=== PATIENT | male | born 1940 | race Hispanic/Latino ===

== ENCOUNTER 2025-04-11 22:14 | Emergency (ER) | payer MEDICARE, MEDICAID ==
[~2025-04-11] VITALS: Ht 160 cm; Wt 79.4 kg
[2025-04-11 22:51] LABS: IMMATURE GRANULOCYTE ABSOLUTE 0.06 K/uL (0-1); NUCLEATED RED BLOOD CELLS 0.0 % (0.0-0.19); PLATELET COUNT (AUTO) 144 K/uL (130-400); RED BLOOD CELL COUNT(AUTO) 4.35 MIL/uL (4.50-6.20); RED CELL DISTRIBUTION WIDTH 13.4 % (11.0-15.5); WHITE BLOOD COUNT (AUTO) 6.4 K/uL (4.8-10.8)
--- NOTE | 2025-04-11 22:54 | HMCIMG ---
EXAM: CR Chest, 1 view CLINICAL HISTORY: Chest pain. COMPARISON: None provided. FINDINGS: The lungs show no infiltrates or other acute findings. No pleural effusion or pneumothorax. The cardiomediastinal silhouette is within normal limits. Mildly tortuous descending thoracic aorta. No acute osseous abnormality. IMPRESSION: No acute cardiopulmonary process is evident. /[place]
[2025-04-11 22:58] LABS: CREATININE 0.9 mg/dL (0.5-1.3); GLOMERULAR FILTR. RATE CALC 85.0 mL/min (>90); GLUCOSE,RANDOM 105.0 mg/dL (70-105); SODIUM SERUM 142.0 mmol/L (136-145); UREA NITROGEN, BLOOD 27.0 mg/dL (7-18)
[2025-04-11 23:03] LABS: CREATINE KINASE, TOTAL 112.0 U/L (21-232)
--- NOTE | 2025-04-12 00:05 | ERN ---
General Chief Complaint: Multiple Complaints Stated Complaint: CHEST PAIN, HTN Time Seen by MD: 22:51 Source: patient, family History of Present Illness Initial Comments 84-year-old male coming in with complaints of left upper quadrant abdominal pain that radiates around to his back. He also had complaints of chest pain and hypertension however these last two complaints have decreased since the patient has come to the hospital. Right now a systolic blood pressure is 160. Allergies: Coded Allergies: No Known Allergies (Unverified Allergy, Unknown, 04/11/25) Past Medical History Past Medical History: Hypertension, Other Medical History Other: PARKINSONS Past Surgical History: None Constitutional: (-) chills, (-) diaphoresis, (-) fever, (-) malaise, (-) weakness, (-) other documentation EENTM: (-) eye pain, (-) blurred vision, (-) tearing, (-) double vision, (-) ear pain, (-) ear discharge, (-) nose pain, (-) nose congestion, (-) throat pain, (-) Throat swelling, (-) mouth pain, (-) tooth pain, (-) mouth swelling, (-) other documentation Respiratory: (-) cough, (-) orthopnea, (-) short of breath, (-) stridor, (-) wheezing, (-) other documentation Cardiovascular: (-) chest pain, (-) edema, (-) palpitations, (-) syncope, (-) dyspnea on exertion, (-) other documentation Gastrointestinal/Abdominal: (-) nausea, (-) vomiting, (-) diarrhea, (-) abdominal pain, (-) abdominal distention, (-) constipation, (-) rectal bleeding, (-) dark stool/melena, (-) other documentation Musculoskeletal: (+) Flank Pain Skin: (-) laceration, (-) contusion, (-) abrasion, (-) abscess, (-) rash, (-) change in color, (-) change in hair, (-) change in nails, (-) diaphoresis, (-) dryness, (-) other documentation Neuro: (-) altered mental status, (-) headache, (-) syncope, (-) paralysis, (-) numbness, (-) seizure, (-) pre-existing deficit, (-) tremors, (-) weakness, (-) dizziness, (-) slurred speech, (-) vertigo, (-) other documentation Physical Exam General Appearance: (+) mild distress Orientation: (+) alert Head/Face Trauma: No Eye: bilateral eye normal inspection, bilateral eye PERRL, bilateral eye EOMI Ear, Nose, Throat: (+) hearing grossly normal, (+) normal ENT inspection Neck: (+) normal inspection, (+) supple Respiratory: (+) chest non-tender, (+) lungs clear, (+) well ventilated Heart: (+) regular, (+) no gallop Vascular: (+) no edema, (+) normal peripheral pulse Gastrointestinal: (+) soft, (+) bowel sound present, (+) tender Results Laboratory and Microbiology Lab and Micro Result Laboratory Tests Test 04/11/25 22:25 04/12/25 00:01 White Blood Count 6.4 K/uL (4.8-10.8) Red Blood Count 4.35 MIL/uL (4.50-6.20) L Hemoglobin 13.0 g/dL (14.0-18.0) L Hematocrit 38.6 % (42-54) L Mean Corpuscular Volume 88.7 fL (79-99) Mean Corpuscular Hemoglobin 29.9 pg (27.0-33.0) Mean Corpuscular Hemoglobin Concent 33.7 g/dL (32.0-36.0) Red Cell Distribution Width 13.4 % (11.0-15.5) Platelet Count 144 K/uL (130-400) Mean Platelet Volume 11.4 fL (7.5-10.5) H Immature Granulocyte % (Auto) 0.9 % (0-1) Neutrophils (%) (Auto) 49.9 % (40.0-77.0) Lymphocytes (%) (Auto) 35.8 % (21.0-51.0) Monocytes (%) (Auto) 7.2 % (3.0-13.0) Eosinophils (%) (Auto) 5.4 % (0.0-8.0) Basophils (%) (Auto) 0.8 % (0.0-5.0) Neutrophils # (Auto) 3.2 K/uL (1.8-7.7) Lymphocytes # (Auto) 2.3 K/uL (1.0-4.8) Monocytes # (Auto) 0.5 K/uL (0.1-1.0) Eosinophils # (Auto) 0.35 K/uL (0.00-0.70) Basophils # (Auto) 0.05 K/uL (0.00-0.20) Absolute Immature Granulocyte (auto 0.06 K/uL (0-1) Nucleated Red Blood Cells 0.0 % (0.0-0.19) Sodium Level 142 mmol/L (136-145) Potassium Level 3.7 mmol/L (3.5-5.1) Chloride Level 108 mmol/L (101-111) Carbon Dioxide Level 26 mmol/L (21-32) Blood Urea Nitrogen 27 mg/dL (7-18) H Creatinine 0.9 mg/dL (0.5-1.3) Glomerular Filtration Rate Calc 85 mL/min (>90) Random Glucose 105 mg/dL (70-105) Total Calcium 8.5 mg/dL (8.5-10.1) Total Creatine Kinase 112 U/L (21-232) Troponin I High Sensitivity 8 ng/L (4-75) Urine Color LIGHT-YELLOW (YELLOW) Urine Appearance CLEAR (CLEAR) Urine pH 5.5 (5.0-8.0) Urine Specific [place] 1.016 (1.001-1.031) Urine Protein NEGATIVE mg/dL (NEGATIVE) Urine Glucose (UA) NEGATIVE mg/dL (NEGATIVE) Urine Ketones NEGATIVE mg/dL (NEGATIVE) Urine Occult Blood NEGATIVE (NEGATIVE) Urine Nitrate NEGATIVE (NEGATIVE) Urine Bilirubin NEGATIVE mg/dL (NEGATIVE) Urine Urobilinogen 0.2 mg/dL (0.2-1.0) Urine Leukocyte Esterase NEGATIVE Sukumar/uL MDM MDM: Differential diagnosis: Acute NV, gastroenteritis, kidney stones, dehydration, pancreatitis, hypertensive crisis Rationale: Tests considered and ordered secondary to shared decision making include: Previous outside records reviewed: Old ER visits. Risk of complication and/or morbidity or mortality of patient management: None Medications-Per medication reconciliation Need for hospitalization: Patient does meet criteria for hospitalization. Need for emergency major/minor surgery: No There are no social concerns with this patient. Prescription drug management Prescriptions will include symptomatic care Patient's prior external medical records from other ER visits were reviewed by me as indicated. Prior testing and results from previous visits were reviewed. Prior tests were taken into account with medical decision making and resource utilization, independent historian/historians were used to obtain complete medical history. I independently interpreted the test that were performed, results were reviewed by me and considered findings on radiology if ordered. Patient's chemistry panel is normal CBC is normal UA is normal. Troponins are low. Patient feels better and would like to go home. His blood pressure was 200 I gave him some hydralazine in his blood pressure dropped down to 160. ED Course Orders Procedure Category Date Status Time Vital Signs Per CPOE 04/11/25 Transmitted Routine 22:17 Chest 1vw RAD 04/11/25 Resulted 22:17 12 Lead Ekg Tracing- EKG 04/11/25 Logged Technical 22:17 Oxygen By Nc/Pulse Ox CPOE 04/11/25 Transmitted 22:17 Maintain Iv CPOE 04/11/25 Transmitted 22:17 Iv Insertion CPOE 04/11/25 Transmitted 22:17 Cardiac Monitoring CPOE 04/11/25 Transmitted 22:17 Pulse Oximetry With CPOE 04/11/25 Transmitted Vs And Prn 22:17 Cbc With Differential LAB 04/11/25 Complete 22:17 Activity: Br W/Brp CPOE 04/11/25 Transmitted With Assist 22:17 Creatine Kinase, Total LAB 04/11/25 Complete 22:17 Troponin I High LAB 04/11/25 Complete Sensitivity 22:17 Urinalysis Profile LAB 04/11/25 Complete 22:17 Basic Metabolic Panel LAB 04/11/25 Complete 22:17 Lactated Ringers PHA 04/12/25 Complete 1000ml (Lactated 00:09 Hydralazine 20mg Inj PHA 04/12/25 Complete (Apresoline 20mg In 00:30 Current Medications Medications (Trade) Dose Ordered Sig/Tyler Route PRN Reason Start Time Stop Time Status Last Admin Dose Admin Hydralazine HCl (APRESOLine 20MG INJ) 20 mg ONCE ONCE IV 04/12/25 00:30 04/12/25 00:31 DC 04/12/25 00:35 Lactated Ringer's (Lactated Ringers 1000ml) 1,000 ml BOLUS STAT IV 04/12/25 00:09 04/12/25 00:12 DC 04/12/25 00:26 Vital Signs Date Time Temp Pulse Resp B/P (MAP) Pulse Ox O2 Delivery O2 Flow Rate FiO2 04/11/25 22:15 97.9 60 16 187/87 97 Room Air DX & DISP Disposition: Discharge Departure Impression: Primary Impression: Atypical chest pain Additional Impression: Dehydration Condition: Stable Additional Instructions: Your laboratory studies are normal. I do not have a good explanation for your abdominal pain and chest pain, I do think that it is from dehydration which can cause high blood pressure paradoxically. In either case you are not having any cardiac ischemia and your blood pressure normalized with medications and fluids. Please follow-up with her primary care physician as you may need to take additional medications to control your blood pressure. Referrals: AC MELCHOR MD (PCP) NBA GUILLORY MD Apr 12, 2025 00:05
[2025-04-12 00:24] LABS: APPEARANCE,URINE CLEAR (CLEAR); GLUCOSE, URINE (UA) NEGATIVE (NEGATIVE); LEUKOCYTE ESTERASE ,URINE NEGATIVE Leu/uL (NEGATIVE); NITRATE,URINE NEGATIVE (NEGATIVE); OCCULT BLOOD,URINE NEGATIVE (NEGATIVE)
[2025-04-12] MEDS: LACTATED RINGERS 1000ML IV STA (00:26)
[2025-04-12 00:34] LABS: ADD UA MICROSCOPIC NO
[2025-04-12 01:38] VITALS: BP 154/79; PULSE 67; RESP 17; TEMP 98.3; O2SAT 96
--- NOTE | 2025-04-12 12:56 | EKG ---
[facility] Test Date: 2025-04-11 Test Time: 22:09:02 Pat Name: CATHY CAZARES Department: ED Room: Gender: M Toe Puller: 08 : 1940 Requested By: NBA GUILLORY Order Number: [id number] Reading MD: Tray Ye Measurements Intervals [place] Rate: 62 P: -4 OK: 213 QRS: -44 QRSD: 88 T: 25 QT: 420 QTc: 425 Interpretive Statements Sinus rhythm Borderline prolonged OK interval Left anterior fascicular block No previous ECG available for comparison Electronically Signed On 04-13-2025 19:14:32 CDT by Tray Ye Please click the below link to view image of tracing.
== END 2025-04-12 01:40 | disposition home or self-care (01) ==
LOC: EDH 22:14
DX: R07.89 Other chest pain (principal); E86.0 Dehydration; I10 Essential (primary) hypertension; G20.A1 Parkinson's disease without dyskinesia, without mention of fluctuations
CPT/HCPCS: 99285; 71045; 82550; 84484; 80048; 85025; 81003; 36415; 93005; 96374; J7120; J0360